=== PATIENT | female | born 1955 | race African-American/Black ===

== ENCOUNTER 2018-06-02 14:36 | Inpatient (IN) | payer MEDICARE, MEDICAID ==
[~2018-06-02] VITALS: Ht 157.5 cm; Wt 99.8 kg
[2018-06-02] MEDS ORDERED: SODIUM CHLORIDE 0.9% 1,000 ML IV ONE ×2 (15:09→17:15)
[2018-06-02 15:59] LABS: BASOPHILS % 0.9 % (0.0-2.0); EOSINOPHILS % 0.6 % (0.0-5.0); HEMOGLOBIN. 17.3 g/dL (12.0-16.0); LYMPHOCYTES % 49.7 % (20.0-50.0); MEAN CORPUSCULAR HEMOGLOBIN 30.9 pg (28.0-32.0); MEAN CORPUSCULAR VOLUME 90.8 fL (81.0-99.0); MEAN PLATELET VOLUME 10.2 fl (7.4-10.4); MONOCYTES % 7.3 % (2.0-8.0); NEUTROPHILS % 41.5 % (40.0-76.0); PLATELET 283 x1000/uL (130-400); RED BLOOD CELL COUNT 5.61 mill/uL (4.2-5.4)
[2018-06-02 16:04] LABS: CHLORIDE 93 mEq/L (98-107)
[2018-06-02 16:13] LABS: BETA HYDROXYBUTYRATE 5.5 mMol/L (0.0-0.3)
[2018-06-02] MEDS ORDERED: INSULIN REGULAR (HUMULIN R) 300UNITS/3ML SUBCUT ONE (17:15)
[2018-06-02 21:41] LABS: CLARITY URINE CLEAR (CLEAR); COLOR URINE YELLOW (YELLOW); KETONES URINE 4+ (NEGATIVE); LEUKOCYTE ESTERASE URINE NEGATIVE (NEGATIVE); NITRITE URINE NEGATIVE (NEGATIVE); OCCULT BLOOD URINE NEGATIVE (NEGATIVE); PROTEIN URINE NEGATIVE (NEGATIVE); SPECIFIC GRAVITY URINE 1.032 (1.005-1.030); UROBILINOGEN URINE 0.2 E.U./dL (0.2-1.0)
[2018-06-02] MEDS: SODIUM CHLORIDE 0.9% 1,000 ML IV SCH (22:29)
[2018-06-02] MEDS ORDERED: DEXTROSE 50% WATER 50ML SYRINGE IV PRN (22:30)
[2018-06-02] MEDS ORDERED: ACETAMINOPHEN 325MG TABLET PO PRN (22:30)
[2018-06-02] MEDS ORDERED: TEMAZEPAM 15MG CAPSULE PO PRN (22:30)
[2018-06-02] MEDS ORDERED: ONDANSETRON HCL 4MG/2ML INJ IV PRN (22:30)
[2018-06-02] MEDS ORDERED: CLONIDINE 0.1MG TABLET PO PRN (22:30)
[2018-06-02] MEDS ORDERED: DIPHENHYDRAMINE 50MG/ML VIAL IV PRN (22:30)
[2018-06-02] MEDS ORDERED: MAGNESIUM HYDROXIDE 400MG/5ML 30ML UDC PO PRN (22:30)
[2018-06-02] MEDS ORDERED: ENOXAPARIN 40MG/0.4ML SYR SUBCUT NR (23:15)
[2018-06-02] MEDS: INSULIN GLARGINE UD 100 UNITS/ML SYR SUBCUT SCH (23:44)
[2018-06-03] MEDS ORDERED: INSULIN LISPRO 100 UNITS/ML SUBCUT SCH (03:15)
[2018-06-03 08:00] VITALS: BP 123/72
[2018-06-03] MEDS: INSULIN LISPRO 100 UNITS/ML SUBCUT SCH ×4 (08:20→20:22)
[2018-06-03] MEDS: BLOOD SUGAR DIAGNOSTIC STRIP TEST SCH ×4 (09:55→20:02)
[2018-06-03 10:00] VITALS: BP 104/65
[2018-06-03] MEDS ORDERED: FAMO-135 PO (10:11)
[2018-06-03] MEDS ORDERED: METO-539 PO (10:11)
[2018-06-03] MEDS ORDERED: SERT50TA PO (10:11)
[2018-06-03] MEDS ORDERED: PRAV40TA58 MT (10:14)
[2018-06-03] MEDS ORDERED: METR250T36 PO (10:14)
[2018-06-03] MEDS ORDERED: FLUC100T42 MT (10:14)
[2018-06-03] MEDS ORDERED: ZET10 MT (10:14)
[2018-06-03] MEDS ORDERED: ASPI-1159 MT (10:14)
[2018-06-03 10:27] VITALS: BP 104/65
[2018-06-03] MEDS: ENOXAPARIN 40MG/0.4ML SYR SUBCUT SCH ×2 (10:50→23:34)
[2018-06-03] MEDS: FLUCONAZOLE 100MG TABLET PO SCH (10:51)
[2018-06-03 12:36] VITALS: BP 123/98
[2018-06-03] MEDS ORDERED: INSULIN GLARGINE UD 100 UNITS/ML SYR SUBCUT NR (14:00)
[2018-06-03] MEDS: SODIUM CHLORIDE 0.9% 1,000 ML IV SCH ×2 (14:14→18:35)
[2018-06-03 16:00] VITALS: BP_SYST 126; BP_SYST 129; BP_DIAS 62; BP_DIAS 76
[2018-06-03 20:00] VITALS: BP 120/82
[2018-06-03] MEDS ORDERED: ENOXAPARIN 40MG/0.4ML SYR SUBCUT SCH (21:00)
[2018-06-03] MEDS ORDERED: INSULIN GLARGINE UD 100 UNITS/ML SYR SUBCUT SCH (22:00)
[2018-06-03] MEDS: INSULIN GLARGINE UD 100 UNITS/ML SYR SUBCUT SCH (23:34)
[2018-06-04] VITALS: BP 120/71
[2018-06-04 04:00] VITALS: BP 124/70
[2018-06-04] MEDS: SODIUM CHLORIDE 0.9% 1,000 ML IV SCH ×2 (04:03→14:50)
[2018-06-04] MEDS: INSULIN LISPRO 100 UNITS/ML SUBCUT SCH ×4 (06:34→21:31)
[2018-06-04] MEDS: BLOOD SUGAR DIAGNOSTIC STRIP TEST SCH ×4 (07:03→20:22)
[2018-06-04 08:00] VITALS: BP 111/63
[2018-06-04] MEDS: FLUCONAZOLE 100MG TABLET PO SCH (09:34)
[2018-06-04] MEDS: ENOXAPARIN 40MG/0.4ML SYR SUBCUT SCH ×2 (09:44→20:22)
[2018-06-04] MEDS: MAGNESIUM/ALUMINUM HYDROXIDE/SIMETHICONE 30ML UDC PO PRN (11:15)
[2018-06-04 12:00] VITALS: BP 99/59
[2018-06-04 16:00] VITALS: BP 107/62
[2018-06-04] MEDS: METFORMIN HCL 500MG TABLET PO SCH (17:59)
[2018-06-04 20:00] VITALS: BP 116/69
[2018-06-04] MEDS: INSULIN GLARGINE UD 100 UNITS/ML SYR SUBCUT SCH (21:30)
[2018-06-05] VITALS: BP 113/60
[2018-06-05] MEDS: SODIUM CHLORIDE 0.9% 1,000 ML IV SCH (00:16)
[2018-06-05 04:00] VITALS: BP 132/82
[2018-06-05 06:06] LABS: BASOPHILS % 0.4 % (0.0-2.0); EOSINOPHILS % 1.5 % (0.0-5.0); HEMATOCRIT. 44.4 % (36.0-48.0); HEMOGLOBIN. 15.1 g/dL (12.0-16.0); LYMPHOCYTES % 68.7 % (20.0-50.0); MEAN CORPUSCULAR HEMOGLOBIN 30.5 pg (28.0-32.0); MEAN CORPUSCULAR VOLUME 89.6 fL (81.0-99.0); MEAN PLATELET VOLUME 10.2 fl (7.4-10.4); MONOCYTES % 9.9 % (2.0-8.0); NEUTROPHILS % 19.5 % (40.0-76.0); PLATELET 218 x1000/uL (130-400); RED BLOOD CELL COUNT 4.96 mill/uL (4.2-5.4); RED CELL DISTRIBUTION WIDTH 13.6 % (11.6-14.6)
[2018-06-05 06:13] LABS: CHLORIDE 106 mEq/L (98-107)
[2018-06-05] MEDS: BLOOD SUGAR DIAGNOSTIC STRIP TEST SCH ×3 (07:20→17:12)
[2018-06-05 08:00] VITALS: BP 112/69
[2018-06-05] MEDS: METFORMIN HCL 500MG TABLET PO SCH ×2 (08:31→17:02)
[2018-06-05] MEDS: ENOXAPARIN 40MG/0.4ML SYR SUBCUT SCH (08:31)
[2018-06-05] MEDS: FLUCONAZOLE 100MG TABLET PO SCH (08:31)
[2018-06-05] MEDS: INSULIN LISPRO 100 UNITS/ML SUBCUT SCH ×3 (08:37→18:11)
[2018-06-05] MEDS: INSULIN GLARGINE UD 100 UNITS/ML SYR SUBCUT SCH (10:01)
[2018-06-05 11:20] VITALS: BP 105/66
[2018-06-05] MEDS ORDERED: INSULIN GLARGINE UD 100 UNITS/ML SYR SUBCUT SCH ×2 (11:30→22:00)
[2018-06-05] MEDS: MAGNESIUM/ALUMINUM HYDROXIDE/SIMETHICONE 30ML UDC PO PRN (15:30)
[2018-06-05 16:00] VITALS: BP 116/75
[2018-06-05 19:56] VITALS: BP 127/76
[2018-06-06 13:06] LABS: *CREATININE RANDOM URINE 114.7 mg/dL (Not Estab.); MICROALBUMIN RANDOM URINE 22.8 ug/mL (Not Estab.)
== END 2018-06-05 20:47 | disposition home or self-care (01) | DRG 638 ==
LOC: ER 15:02 → 6EST 17:14 → EDBEDREQSVC 17:18 → EDBEDREQTM 17:18 → EDBEDREQ 17:18 → ENRESERV 06-03 07:23
PROVIDERS: ADMIT Internal Medicine; ATTEND Internal Medicine
DX: E11.65 Type 2 diabetes mellitus with hyperglycemia (principal); Z68.41 Body mass index [BMI] 40.0-44.9, adult; B37.3 Candidiasis of vulva and vagina; E66.9 Obesity, unspecified; E78.00 Pure hypercholesterolemia, unspecified; F32.9 Major depressive disorder, single episode, unspecified; E78.5 Hyperlipidemia, unspecified; E86.0 Dehydration; F17.200 Nicotine dependence, unspecified, uncomplicated; I10 Essential (primary) hypertension; Z83.3 Family history of diabetes mellitus; Z79.82 Long term (current) use of aspirin; Z79.899 Other long term (current) drug therapy
CPT/HCPCS: 36415; 71045; 80048; 82010; 82043; 82570; 82962; 83036; 93005; 96372; 99285; A6261; J1650; J1815; J7030